=== PATIENT | male | born 1990 | race Caucasian/White ===

== ENCOUNTER 2016-07-26 13:12 | Emergency (ER) | payer OTHER ==
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
[~2016-07-26 13:12] MED LIST: AUGMENTIN PO; DICLOFENAC PO; IBUPROFEN PO; MOTRIN600 MG PO; NAPROSYN500 MG PO; NO MEDICATIONS; NORCO 5/325 TAB1 TAB PO; PEN-VEE K PO; PHENERGAN W/CO120 ML PO; PHENERGAN25 MG PO; PREDNISONE PO; ROBAXIN500 MG PO; TAMIFLU75 M1 PO; TOBREX 0.3% OP3.5 GM OP; TYLENOL #3 PO; VIBRAMYCIN100 M1 PO; VOLTAREN75 MG PO
== END 2016-07-26 14:40 | disposition home or self-care (01) ==
LOC: SED 13:12
DX: S02.40FA Zygomatic fracture, left side, initial encounter for closed fracture (principal); S02.82XA Fracture of other specified skull and facial bones, left side, initial encounter for closed fracture; F17.200 Nicotine dependence, unspecified, uncomplicated; Y04.0XXA Assault by unarmed brawl or fight, initial encounter; Y92.9 Unspecified place or not applicable
CPT/HCPCS: 70450; 70486; 99284